=== PATIENT | male | born 1945 | race Caucasian/White ===

== ENCOUNTER → 2017-03-16 | Outpatient (CLI) | payer MEDICARE ==
--- NOTE | 2017-03-16 16:22 | RADIOLOGY REPORT (SQ) ---
EXAM DESCRIPTION: SMALL BOWEL SERIES COMPLETED DATE/TIME: 03/16/2017 9:42 am REASON FOR STUDY: IRON DEFICIENCY E61.1 IRON DEFICIENCY COMPARISON: None. FLUOROSCOPY TIME: 1 minutes 17 seconds 3 fluoroscopic spot images, 6 KUB imagessaved to PACS. LIMITATIONS: None. PROCEDURE: Initial molder foam rubber image of abdomen acquired, followed by administration of oral contrast. Se rial radiographic images acquired. Fluoroscopic images recorded of the terminal ileum and other joe cated areas. All images stored on PACS. FINDINGS: CLERK STENOGRAPHER KUB: Non-obstructive bowel pattern. No abnormal calcifications. Soft tissue planes normal. STOMACH: No significant reflux. Normal distention without abnormality. DUODENUM: Normal mucosal pattern with adequate distention. No displacement or obstruction. JEJUNUM: Normal mucosal pattern. No dilatation, segmentation, strictures or masses. ILEUM: Normal mucosal pattern. No dilatation, segmentation, strictures or masses. TERMINAL ILEUM AND ILEO-CECAL VALVE: Normal mucosal pattern without "cobble-stoning" or stricture. N ormal compression. PROXIMAL COLON: Incompletely imaged. No abnormality. OTHER: No other significant finding. IMPRESSION: NORMAL SMALL BOWEL EXAM. COMMENT: Quality ID [id number]: Final reports for procedures using fluoroscopy that document radiation exp osure indices, or exposure time and number of fluorographic images (if radiation exposure indices are not available) TECHNICAL DOCUMENTATION: JOB ID: [id number] [employer]- All Rights Reserved
== END ==
LOC: RAD 07:07
PROVIDERS: ATTEND Internal Medicine Gastroenterology
DX: K31.89 Other diseases of stomach and duodenum (principal)
CPT/HCPCS: 74250

== ENCOUNTER 2018-08-08 20:06 | Emergency (ER) | payer MEDICARE ==
[2018-08-08] MEDS ORDERED: ASPIRIN 81 MG TABLET, CHEWABLE PO ONE (21:03)
--- NOTE | 2018-08-08 21:07 | EKG REPORT ---
SEVERITY:- ABNORMAL ECG - SINUS RHYTHM PROBABLE LEFT ATRIAL ABNORMALITY INCOMPLETE RBBB AND LAFB LEFT VENTRICULAR HYPERTROPHY ANTERIOR Q WAVES, POSSIBLY DUE TO LVH : Confirmed by: Susie Rosales MD 08-Aug-2018 21:07:13
[2018-08-08 21:28] LABS: ABSOLUTE BASOPHILS # (AUTO) 0.1 10^3/uL (0.0-0.2); ABSOLUTE EOSINOPHILS # (AUTO) 0.1 10^3/uL (0.0-0.6); ABSOLUTE LYMPHOCYTES (AUTO) 0.6 10^3/uL (0.5-4.7); ABSOLUTE MONOCYTES (AUTO) 0.7 10^3/uL (0.1-1.4); ABSOLUTE NEUT (AUTO) 4.2 10^3/uL (1.7-8.2); BASOPHILS % (AUTO) 1.3 % (0-2); EOSINOPHILS % (AUTO) 1.6 % (0-6); HEMATOCRIT 40.9 % (37.9-51.0); LYMPHOCYTES % (AUTO) 11.2 % (13-45); MEAN CORPUSCULAR HEMOGLOBIN 29.8 pg (27.0-33.4); MEAN CORPUSCULAR HGB CONC 34.3 g/dL (32.0-36.0); MEAN CORPUSCULAR VOLUME 87 fl (80-97); MONOCYTES % (AUTO) 11.6 % (3-13); PLATELET COUNT 265 10^3/uL (150-450); RED BLOOD COUNT 4.71 10^6/uL (4.35-5.55); RED CELL DISTRIBUTION WIDTH 14.3 % (11.5-14.0); SEGMENTED NEUTROPHILS % (AUTO) 74.3 % (42-78); TOTAL CELLS COUNTED % (AUTO) 100 %; WHITE BLOOD COUNT 5.7 10^3/uL (4.0-10.5)
[2018-08-08] MEDS ORDERED: METOPROLOL TARTRATE PF/INJ 5 MG/5 ML SDV IV ONE (21:29)
[2018-08-08] MEDS ORDERED: NITROGLYCERIN 2% OINTMENT 1 GM PACKET TP ONE (21:29)
[2018-08-08 21:46] LABS: ALANINE AMINOTRANSFERASE 20 U/L (21-72); ALBUMIN 3.9 g/dL (3.5-5.0); ALKALINE PHOSPHATASE 116 U/L (38-126); ANION GAP 9 (5-19); ASPARTATE AMINO TRANSFERASE 27 U/L (17-59); BILIRUBIN,DIRECT 0.3 mg/dL (0.0-0.4); BILIRUBIN,TOTAL 0.4 mg/dL (0.2-1.3); BLOOD UREA NITROGEN 17 mg/dL (7-20); CALCIUM 9.4 mg/dL (8.4-10.2); CARBON DIOXIDE 33 mmol/L (22-30); CHLORIDE 99 mmol/L (98-107); CREATINE KINASE 71 U/L (55-170); GLUCOSE 119 mg/dL (75-110); POTASSIUM 4.3 mmol/L (3.6-5.0); SODIUM 140.6 mmol/L (137-145); TOTAL PROTEIN 7.2 g/dL (6.3-8.2)
--- NOTE | 2018-08-08 21:50 | RADIOLOGY REPORT (SQ) ---
EXAM DESCRIPTION: XR CHEST 1 VIEW COMPLETED DATE/TME: 08/08/2018 21:03 CLINICAL HISTORY: 73 years, Male, cp Findings: Heart is not enlarged. Aorta is uncoiled. No consolidations or pleural effusions. No pulmonary edema or pneumothorax. IMPRESSION: No acute disease.
[2018-08-08 21:54] LABS: CREATINE KINASE MB 1.24 ng/mL (<4.55); TROPONIN I 0.022 ng/mL
[2018-08-08] MEDS ORDERED: NITROGLYCERIN 0.4 MG/TAB 25 TAB/BOTTLE SL PRN (22:00)
[2018-08-08] MEDS ORDERED: MORPHINE SULFATE 10 MG/ML INJ IV ONE (22:01)
[2018-08-08] MEDS ORDERED: ONDANSETRON HCL INJ/PF 4 MG/2 ML SDV IV ONE (22:01)
--- NOTE | 2018-08-08 22:02 | ER Document Report ---
ED Cardiac - General Chief Complaint: Chest Pain Stated Complaint: CHEST PAIN Time Seen by Provider: 08/08/18 21:29 Mode of Arrival: Ambulatory Information source: Patient Notes: This is a 73-year-old man with a history of hyper tension, throat cancer ( status post radiation therapy, chemotherapy) who presents to the emergency room with chest pain starting when he was outside with his dog. Patient does report nausea and vomiting after the onset of chest pain. He describes the pain is retrosternal and sharp in nature. He denies shortness of breath. The patient denied any chest pain going to the back at first, but then started saying it was going to his back afterwards. Patient's blood pressure was noted to be 199/ 117 in triage. Past medical history: Hypertension throat cancer status post radiation therapy and chemotherapy. Past surgical history: Carotid endarterectomy ([facility]) PEG tube (during chemotherapy and radiation therapy: Has since been reversed). Medicines: Enalapril 2.5 mg twice daily Allergies: None TRAVEL OUTSIDE OF THE [place] IN LAST 30 DAYS: No - HPI Patient complains to provider of: Chest pain Use of: denies: Alcohol, Amphetamines, Bath salts, Caffeine, Cocaine, Decongestants, Other Chest pain location: Substernal Quality of pain: Sharp Chest pain radiation location: Back Severity now: Mild Severity at worst: Severe Pain level currently: 1 Chest pain precipitating factors: At Rest Cardiac risk factors: Hypertension Positive cardiac history: No Associated symptoms: denies: Abdominal pain, Cool extremities, Fever/chills, Palpitations Exacerbated by: Denies Relieved by: Nothing Similar symptoms previously: No Recently seen / treated by doctor: No - Related Data Allergies/Adverse Reactions: No Known Allergies Allergy (Verified 12/12/13 14:12) Past Medical History - General Information source: Patient - Social History Smoking Status: Former Smoker Cigarette use (# per day): No Chew tobacco use (# tins/day): No Smoking Education Provided: No Frequency of alcohol use: None Drug Abuse: None Lives with: Spouse/Significant other Family History: None Patient has suicidal ideation: No Patient has homicidal ideation: No - Past Medical History Cardiac Medical History: Reports: Hx Hypertension Denies: Hx Coronary Artery Disease, Hx Heart Attack Pulmonary Medical History: Denies: Hx Asthma, Hx Bronchitis, Hx COPD, Hx Pneumonia Neurological Medical History: Denies: Hx Cerebrovascular Accident, Hx Seizures Renal/ Medical History: Denies: Hx Peritoneal Dialysis GI Medical History: Reports: Hx Hepatitis - hep c Musculoskeletal Medical History: Denies Hx Arthritis Infectious Medical History: Reports: Hx Hepatitis - hep c Past Surgical History: Reports: Hx Carotid Endarterectomy, Other - PEG tube with reversal - Immunizations Hx Diphtheria, Pertussis, Tetanus Vaccination: Yes Hx Pneumococcal Vaccination: 12/12/13 Review of Systems - Review of Systems Constitutional: denies: Chills, Fever EENT: No symptoms reported Cardiovascular: See HPI Respiratory: No symptoms reported Gastrointestinal: No symptoms reported Genitourinary: No symptoms reported Male Genitourinary: No symptoms reported Musculoskeletal: No symptoms reported Skin: No symptoms reported Hematologic/Lymphatic: No symptoms reported Neurological/Psychological: No symptoms reported Physical Exam - Vital signs Vitals: Temp Pulse Resp BP Pulse Ox 97.2 F 81 18 199/117 H 97 08/08/18 20:08 08/08/18 20:08 08/08/18 20:08 08/08/18 20:08 08/08/18 20:08 Notes: Physical exam: GENERAL: Patient is alert and oriented x3. Blood pressure is 185/116 HEAD: Atraumatic, normocephalic. EYES: Pupils equal round and reactive to light, extraocular movements intact, sclera anicteric, conjunctiva are normal. ENT: TMs normal, nares patent, oropharynx clear without exudates. Moist mucous membranes. NECK: Normal range of motion, supple without obvious mass or JVD. LUNGS: Breath sounds clear to auscultation bilaterally and equal. No wheezes rales or rhonchi. HEART: Regular rate and rhythm without murmurs, rubs or gallops. ABDOMEN: Soft, normoactive bowel sounds. No tenderness to palpation. No guarding, no rebound. No masses appreciated. EXTREMITIES: Normal range of motion, no pitting or edema. No clubbing or cyanosis. Strong pulses bilaterally upper and lower extremities. NEUROLOGICAL: Cranial nerves II through XII grossly intact. Normal speech, moving all extremities. PSYCH: Normal mood, normal affect. SKIN: Warm, Dry, normal turgor, no rashes or lesions noted. Course - Re-evaluation Re-evalutation: 08/08/18 23:50 Note: Patient was started with normal chest pain protocol: Patient was given sublingual nitroglycerin placed on sublingual nitroglycerin. He also received IV morphine and IV metoprolol.. He did temporarily drop his blood pressure which responded quickly after taking off the Nitropaste. In general, he states his pain is much improved. I did discuss the results of the CAT scan with Dr. Leach which shows a type B thoracic aortic dissection. Additional findings include pulmonary vein thromboses of bilateral inferior pulmonary veins. There is no evidence of pulmonary artery emboli. Patient was placed on IV nicardipine drip and his blood pressure is currently 142/72 and we will titrate his blood pressure down to a systolic blood pressure between 100 and 120. [facility] has been contacted for transfer. 08/08/18 23:53 08/09/18 00:09 Current blood pressure is 123/83 with a pulse of 67. 08/09/18 00:[address] Dhaliwal at [facility]: He is willing to accept patient to the CVICU. Patient's repeat EKG shows normal sinus rhythm with a ventricular rate of 74, there does appear to be inverted T's which are new compared to the previous EKG. His first troponin is negative. His pain is actually much improved ( almost gone) and his blood pressure at this point is 110/74 with a pulse rate of 65. Will continue to follow. 08/09/18 00:44 - Vital Signs Vital signs: Temp Pulse Resp BP Pulse Ox 97.2 F 81 16 125/77 97 08/08/18 20:08 08/08/18 20:08 08/09/18 00:05 08/09/18 00:01 08/09/18 00:05 - Laboratory Result Diagrams: 08/08/18 21:14 08/08/18 21:14 Laboratory results interpreted by me: 08/08/18 08/08/18 21:14 21:14 RDW 14.3 H Lymphocytes % 11.2 L Carbon Dioxide 33 H Glucose 119 H ALT 20 L - Diagnostic Test Radiology reviewed: Image reviewed, Reports reviewed - CT of the chest shows a thoracic aortic dissection starting after the brachial cephalic artery. It also shows pulmonary vein thromboses of bilateral inferior pulmonary veins. - EKG Interpretation by Me Rate: Normal Rhythm: NSR - EKG shows sinus rhythm with a ventricular rate of 82, left axis deviation, signs of LVH, no acute ST-T wave changes Critical Care Note - Critical Care Note Total time excluding time spent on procedures (mins): 90 Discharge - Discharge Clinical Impression: Thoracic aortic dissection, Pulmonary vein thrombosis Condition: Serious Disposition: [facility] Referrals: SUSU FRYE FNP [Primary Care Provider] - Follow up as needed
[2018-08-08] MEDS ORDERED: NORMAL SALINE 1000 ML 1,000 ML IV ONE (22:32)
[2018-08-08] MEDS ORDERED: NICARDIPINE HCL RTU, ISO-OS 20 MG/200 ML RTUINJ IV PRN (23:30)
--- NOTE | 2018-08-08 23:33 | RADIOLOGY REPORT (SQ) ---
EXAM DESCRIPTION: CT CHEST ANGIOGRAPHY WITHOUT THEN WITH IV CONTRAST COMPLETED DATE/TME: 08/08/2018 22:36 CLINICAL HISTORY: 73 years Male, cp Comparison: None. Technique: IV contrast. Coronal and sagittal reformat. 3d reconstruction. This exam was performed according to our departmental dose-optimization program, which includes automated exposure control, adjustment of the mA and/or kV according to patient size and/or use of iterative reconstruction technique.[facility]: Dose Right [facility]: CareDose [facility]: Dose Right [facility]: Teradose 4D [facility]: Smart LIQVID LIMITATIONS: None Findings: Type B aortic dissection with up to 50% diameter stenosis of the descending thoracic aorta. Intimal flap extends from the aortic arch to the lower chest. Nonocclusive filling defects of bilateral inferior pulmonary veins suggestive of pulmonary vein thrombosis. No pulmonary arterial embolus. No right ventricular strain. Emphysematous hyperinflation. Coronary arterial calcification. Atherosclerosis. Degenerative disc disease. Inferior neck, axillae, mediastinum, lungs, airway, lymphatics, heart, upper abdomen, and musculoskeleton appear otherwise unremarkable. Impression: 1. Type B thoracic aortic dissection. 2. 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 Differential etiologies include complications of malignancy, post lung surgery, atrial fibrillation, or idiopathic. 3. No pulmonary arterial embolus.
[2018-08-09 01:26] VITALS: BP 111/72
--- NOTE | 2018-08-09 08:16 | EKG REPORT ---
SEVERITY:- NORMAL ECG - SINUS RHYTHM : Confirmed by: Susie Rosales MD 09-Aug-2018 08:15:24
--- NOTE | 2018-08-09 08:16 | EKG REPORT ---
SEVERITY:- ABNORMAL ECG - SINUS RHYTHM LEFT ANTERIOR FASCICULAR BLOCK : Confirmed by: Susie Rosales MD 09-Aug-2018 08:15:18
== END 2018-08-09 01:38 | disposition short-term general hospital (02) ==
LOC: ER 20:06
DX: I71.01 Dissection of thoracic aorta (principal); I26.99 Other pulmonary embolism without acute cor pulmonale; R11.2 Nausea with vomiting, unspecified; I10 Essential (primary) hypertension; Z85.819 Personal history of malignant neoplasm of unspecified site of lip, oral cavity, and pharynx; Z92.21 Personal history of antineoplastic chemotherapy; Z92.3 Personal history of irradiation; Z79.899 Other long term (current) drug therapy; Z87.891 Personal history of nicotine dependence
CPT/HCPCS: 93005 ×2; 99291; 99292; 96361; 96375; 96365; 96366; 36415; 82553; 82550; 85025; 80053; 84484; 71045; 71275; 93010 ×2; A9270 ×2; J3490 ×2; J2270; J2405; J7030

== ENCOUNTER 2018-09-06 08:05 | Emergency (ER) | payer MEDICARE ==
--- NOTE | 2018-09-06 08:24 | ER Document Report ---
ED General - General Stated Complaint: POSSIBLE STROKE Time Seen by Provider: 09/06/18 08:09 Notes: Patient is a 73-year-old male with history of peripheral vascular disease, and carotid artery stenosis with stenting that presents to the emergency department for chief complaint of left-sided weakness, confusion. Patient history provided by EMS and the patient's . Paramedics report that the patient was last normal at 715 this morning, and when they arrived the patient had left-sided hemiparesis, and was dysarthric, and appeared confused did not remember the events leading up to their arrival. However in route his symptoms had completely resolved without intervention. Patient does not recall having the symptoms, at this time he is completely alert and oriented, and has no complaints, denies having any weakness numbness or tingling. His speech is mj r. He does have a history of bilateral carotid artery stenosis, with bilateral stenting, he also has a history recent diagnosis at the end of July of descending thoracic aortic aneurysm with dissection, which is currently being monitored. Past Medical History: Hypertension, peripheral vascular disease, history of throat cancer status post radiation and chemo Past Surgical History: Carotid artery stenting and endarterectomy Social History: Admits to smoking cigarettes up until 2 years ago, was a former heavy smoker, denies current alcohol or drug use Family History: Reviewed and noncontributory for presenting illness Allergies: Reviewed, see documented allergy list. REVIEW OF SYSTEMS: Other than noted above, the 12 point review of systems was reviewed with the patient and were negative, all pertinent findings are included in the HPI. PHYSICAL EXAMINATION: Vital signs reviewed, nursing noted reviewed. GENERAL: Elderly male, no acute distress HEAD: Atraumatic, normocephalic. EYES: Eyes appear normal, extraocular movements intact, sclera anicteric, conjunctiva are normal. ENT: nares patent, oropharynx clear without exudates. Moist mucous membranes. NECK: Normal range of motion, supple without lymphadenopathy LUNGS: Breath sounds clear to auscultation bilaterally and equal. No wheezes rales or rhonchi. HEART: Regular rate and rhythm without murmurs ABDOMEN: Soft, nontender, normoactive bowel sounds. No rebound, guarding, or rigidity. No masses appreciated. EXTREMITIES: Nontender, good range of motion, no pitting or edema. NEUROLOGICAL: No focal neurological deficits. Moves all extremities spontaneously Motor and sensory grossly intact on exam. NIH stroke scale score: 0 PSYCH: Normal mood, normal affect. SKIN: Warm, Dry, normal turgor, no rashes or lesions noted on exposed skin TRAVEL OUTSIDE OF THE [place] IN LAST 30 DAYS: No - Related Data Allergies/Adverse Reactions: No Known Allergies Allergy (Verified 12/12/13 14:12) Past Medical History - Social History Family History: None - Past Medical History Cardiac Medical History: Reports: Hx Hypertension Denies: Hx Coronary Artery Disease, Hx Heart Attack Pulmonary Medical History: Denies: Hx Asthma, Hx Bronchitis, Hx COPD, Hx Pneumonia Neurological Medical History: Denies: Hx Cerebrovascular Accident, Hx Seizures Renal/ Medical History: Denies: Hx Peritoneal Dialysis GI Medical History: Reports: Hx Hepatitis - hep c Musculoskeletal Medical History: Denies Hx Arthritis Infectious Medical History: Reports: Hx Hepatitis - hep c Past Surgical History: Reports: Hx Carotid Endarterectomy, Other - PEG tube with reversal - Immunizations Hx Diphtheria, Pertussis, Tetanus Vaccination: Yes Hx Pneumococcal Vaccination: 12/12/13 Physical Exam - Vital signs Vitals: Pulse Resp BP Pulse Ox 54 L 16 153/90 H 93 09/06/18 08:06 09/06/18 08:06 09/06/18 08:06 09/06/18 08:06 Course - Re-evaluation Re-evalutation: Patient seen and examined vital signs reviewed. Laboratory data and imaging were ordered as appropriate for the patient's presenting symptoms and complaint, with consideration of any critical or life threatening conditions that may be associated with their obtained history and exam as noted above. On arrival, the patient's NIH stroke score was 0, see detailed note on NIH stroke scale score. Results were reviewed when available and demonstrated leukocytosis, CT of the head was negative for acute hemorrhage, CT of the head and neck demonstrated complete occlusion of the right carotid artery, in-stent occlusion, left carotid artery stent was patent, there is noted to be hypoperfusion of the right frontal lobe,, which may be explained the patient's symptoms, if he had transient hypotension, or vagal, however at this time his symptoms are completely resolved, his blood pressure is 160/90, he did not take his home blood pressure medications today. The patient was re-evaluated and was stable, no new neurological findings on my repeat evaluation Evaluation was most consistent with TIA, however patient has carotid artery stenosis, and hypoperfusion of the right frontal lobe, which would explain the symptoms he presented with, and why EMS was called. As he had left-sided motor symptoms. His situation is rather complicated however given that he has a descending thoracic aortic aneurysm with dissection, and completely occluded right carotid artery, therefore feel the patient should be transferred to [facility], where he has seen his vascular surgeon before, and it where he was seen on his prior visit for the initial diagnosis of his aneurysm. Results were discussed with the patient at this point after careful consideration I feel that that patient should be transferred to [facility] due to his complicated past medical history and current aortic dissection. Case was discussed with both the neuro interventionalists and Dr. Dixon the hospitalist, who graciously accepted the patient with her service, no further recommendations at this time. This was discussed with the patient that it is in the best interest for their care to be transferred, the risks and benefits of transfer were discussed, including but not limited to clinical deterioration during transport, respiratory distress, and potential for traumatic injuries. Patient agreed with this plan of care. *Note is created using voice recognition software and may contain spelling, syntax or grammatical errors. Laboratory 09/06/18 09/06/18 09/06/18 08:30 08:30 08:30 WBC 15.0 H RBC 4.54 Hgb 13.0 L Hct 39.6 MCV 87 MCH 28.7 MCHC 32.9 RDW 14.1 H Plt Count 375 Total Counted 100 Seg Neutrophils % Not Reportable Seg Neuts % (Manual) 85 H Band Neutrophils % 7 H Lymphocytes % Not Reportable Lymphocytes % (Manual) 4 L Monocytes % Not Reportable Monocytes % (Manual) 4 Eosinophils % Not Reportable Eosinophils % (Manual) 0 Basophils % Not Reportable Basophils % (Manual) 0 Absolute Neutrophils Not Reportable Abs Neuts (Manual) 13.8 H Absolute Lymphocytes Not Reportable Abs Lymphs (Manual) 0.6 Absolute Monocytes Not Reportable Abs Monocytes (Manual) 0.6 Absolute Eosinophils Not Reportable Absolute Eos (Manual) 0.0 Absolute Basophils Not Reportable Abs Basophils (Manual) 0.0 Platelet Comment ADEQUATE Poikilocytosis SLIGHT Anisocytosis SLIGHT Ovalocytes SLIGHT PT INR APTT Sodium 134.7 L Potassium 4.7 Chloride 101 Carbon Dioxide 29 Anion Gap 5 BUN 20 Creatinine 1.05 Est GFR ( Amer) > 60 Est GFR (Non-Af Amer) > 60 Glucose 107 POC Glucose Calcium 8.8 Total Bilirubin 0.7 Direct Bilirubin 0.3 Neonat Total Bilirubin Not Reportable Neonat Direct Bilirubin Not Reportable Neonat Indirect Bili Not Reportable AST 21 ALT 12 L Alkaline Phosphatase 94 Creatine Kinase 27 L CK-MB (CK-2) 0.35 Troponin I < 0.012 Total Protein 5.7 L Albumin 2.9 L 09/06/18 09/06/18 09/06/18 08:31 08:45 08:46 WBC RBC Hgb Hct MCV MCH MCHC RDW Plt Count Total Counted Seg Neutrophils % Seg Neuts % (Manual) Band Neutrophils % Lymphocytes % Lymphocytes % (Manual) Monocytes % Monocytes % (Manual) Eosinophils % Eosinophils % (Manual) Basophils % Basophils % (Manual) Absolute Neutrophils Abs Neuts (Manual) Absolute Lymphocytes Abs Lymphs (Manual) Absolute Monocytes Abs Monocytes (Manual) Absolute Eosinophils Absolute Eos (Manual) Absolute Basophils Abs Basophils (Manual) Platelet Comment Poikilocytosis Anisocytosis Ovalocytes PT 14.4 Cancelled INR 1.07 Cancelled APTT 25.7 Cancelled Sodium Potassium Chloride Carbon Dioxide Anion Gap BUN Creatinine Est GFR ( Amer) Est GFR (Non-Af Amer) Glucose POC Glucose 101 Calcium Total Bilirubin Direct Bilirubin Neonat Total Bilirubin Neonat Direct Bilirubin Neonat Indirect Bili AST ALT Alkaline Phosphatase Creatine Kinase CK-MB (CK-2) Troponin I Total Protein Albumin Chest X-Ray 09/06/18 08:06 IMPRESSION: New heterogeneous opacity of the left lung base, concerning for infection or aspiration. Head CT 09/06/18 08:06 IMPRESSION: No acute intracranial pathology. No CT evidence of acute stroke or hemorrhage. EVIDENCE OF ACUTE STROKE: NO. Findings were discussed via telephone with Dr. Greene, 8:18 AM, 09/06/2018 Head CTA 09/06/18 08:10 IMPRESSION: 1. 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 This is of uncertain acuity. The right middle cerebral artery and distal branches are patent and perfused via the patent anterior and posterior communicating arteries, however there is a subjective appearance of contrast hypoperfusion of the anterior right frontal lobe, possibly due to inadequate perfusion pressure through these collateral vessels. Correlate for referable neurologic symptoms. 2. The left internal carotid artery stent and distal vessel are patent. 3. Normal posterior circulation. 4. Redemonstrated, partially imaged thoracic aortic aneurysm and descending thoracic aortic dissection. 5. Emphysema of the included bilateral lung apices and patchy airspace disease of the partially imaged left upper lobe, findings in keeping with chest radiograph and concerning for infection or aspiration. Neck CTA 09/06/18 08:10 IMPRESSION: 1. 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 This is of uncertain acuity. The right middle cerebral artery and dist al branches are patent and perfused via the patent anterior and posterior communicating arteries, however there is a subjective appearance of contrast hypoperfusion of the anterior right frontal lobe, possibly due to inadequate perfusion pressure through these collateral vessels. Correlate for referable neurologic symptoms. 2. The left internal carotid artery stent and distal vessel are patent. 3. Normal posterior circulation. 4. Redemonstrated, partially imaged thoracic aortic aneurysm and descending thoracic aortic dissection. 5. Emphysema of the included bilateral lung apices and patchy airspace disease of the partially imaged left upper lobe, findings in keeping with chest radiograph and concerning for infection or aspiration. - Vital Signs Vital signs: Temp Pulse Resp BP Pulse Ox 54 L 16 153/90 H 95 09/06/18 08:06 09/06/18 08:06 09/06/18 08:06 09/06/18 08:36 - Laboratory Result Diagrams: 09/06/18 08:30 09/06/18 08:30 Laboratory results interpreted by me: 09/06/18 09/06/18 08:30 08:30 WBC 15.0 H Hgb 13.0 L RDW 14.1 H Seg Neuts % (Manual) 85 H Band Neutrophils % 7 H Lymphocytes % (Manual) 4 L Abs Neuts (Manual) 13.8 H Sodium 134.7 L ALT 12 L Creatine Kinase 27 L Total Protein 5.7 L Albumin 2.9 L - EKG Interpretation by Me Additional EKG results interpreted by me: EKG demonstrates sinus bradycardia with a ventricular rate of 57 bpm, left axis deviation, normal intervals, no evidence of acute ischemia on this EKG, this is compared with prior EKG from 08/09/2018, where the T waves in the lateral leads appear to be flipped from depressed to upright. Discharge - Discharge Referrals: SUSU FRYE FNP [Primary Care Provider] - Follow up as needed ED NIH Stroke Scale - NIH Stroke Scale *: 1. NIH scale should be completed with appropriate accompanying assessment tools. *: 2. The NIH should reflect what the patient is capable of doing and should not be coached by the clinician. 1a. Level of Consciousness: 0=Alert;keenly responsive -: 1=Drowsy -: 2=Obtunded -: 3=Coma/unresponsive or reflex to noxious stimuli. 1a. Responses: 0 1b. Orientation Questions: a. What month is it? -: b. How old are you? -: 0=Answers both questions correctly. -: 1=Answers one question correctly or patient is intubated or has orotracheal trauma. -: 2=Answers neither question correctly. 1b. Responses: 0 1c. Response to commands: a. Open and close eyes? -: b. Retirement Specialist and release hand? -: Credit is given despite weakness. Demonstration of task is permitted. Substitute command if hands cannot be used. -: 0=Performs both tasks correctly -: 1=Performs one task correctly -: 2=Performs neither task correctly 1c. Responses: 0 2. Gaze: Establish eye contact and instruct patient to "Follow my finger" -: 0=Normal -: 1=Partial gaze palsy. Gaze is abnormal in one or both eyes, but where forced deviation or total gaze paresis is not present. -: 2=Forced deviation or total gaze paresis. 2. Responses: 0 3. Visual Calix: Sees fingers in all four quadrants. -: 0=No visual loss. -: 1=Partial hemianopsia. -: 2=Complete hemianopsia. -: 3=Bilateral hemianopsia (including Cortical blindness) 3. Responses: 0 4. Facial Movement: Instruct patient to: -: a. Show me your teeth -: b. Raise your eyebrows -: c. Close your eyes -: d. Smile -: 0=Normal symmetrical movement -: 1=Minor paralysis (flattened nasolabial fold, asymmetry on smiling). -: 2=Partial paralysis (total or near total paralysis of lower face). -: 3=Complete paralysis of upper and lower face 4. Responses: 0 5. Motor functions (left arm): Alternate sides and extend each arm with palms down (90 degrees if sitting or 45 degrees for supine). -: 0=No drift;limb holds for full 10 seconds. -: 1=Drift; limb holds but drifts down before full 10 seconds, but does not hit bed. -: 2=Some effort against gravity; limb cannot get to or maintain position. -: 3=No effort against gravity; limb falls. -: 4=No movement. -: UN=Amputation, joint fusion, explain in comments. 5. Responses (left arm): 0 5. Motor Functions (right arm): Alternate sides and extend each arm with palms down (90 degrees if sitting or 45 degrees for supine). -: 0=No drift;limb holds for full 10 seconds. -: 1=Drift; limb holds but drifts down before full 10 seconds, but does not hit bed. -: 2=Some effort against gravity; limb cannot get to or maintain position. -: 3=No effort against gravity; limb falls. -: 4=No movement. -: UN=Amputation, joint fusion, explain in comments. 5. Responses (right arm): 0 6. Motor Functions (left leg): With patient lying supine, alternate sides and extend each leg (30 degrees always while supine). -: 0=No drift, leg holds position for full 5 seconds -: 1=Drift; leg falls before full 5 seconds but does not hit bed. -: 2=Some effort against gravity, leg falls to bed but some effort against gravity. -: 3=No effort against gravity, leg falls to bed immediately. -: 4=No movement. -: UN=Amputation, joint fusion; explain in comments. 6. Responses (left leg): 0 6. Motor Functions (right leg): With patient lying supine, alternate sides and extend each leg (30 degrees always while supine). -: 0=No drift, leg holds position for full 5 seconds -: 1=Drift; leg falls before full 5 seconds but does not hit bed. -: 2=Some effort against gravity, leg falls to bed but some effort against gravity. -: 3=No effort against gravity, leg falls to bed immediately. -: 4=No movement. -: UN=Amputation, joint fusion; explain in comments. 6. Responses (right leg): 0 7. Limb Ataxia: With eyes open instruct patient to: -: a. "Touch your finger to your nose". -: b. "Touch your heel to your alfaro" -: 0=Absent -: 1=Present in one limb. -: 2=Present in two limbs. -: UN=Amputation or joint fusion; explain in comments. 7. Responses: 0 8. Sensory: Test sensation using pinprick or noxious stimuli. Test as many body parts as possible. -: 0=Normal;no sensory loss -: 1=Mile to moderate sensory loss (patient feels pin prick but is less sharp on affected side). -: 2=Severe or total sensory loss. 8. Responses: 0 9. Best Language: Instruct patient to: -: a. "Describe what you see in this picture." -: b. "Name the items in this picture." -: c. "Read these sentences." -: 0=No aphasia, normal -: 1=Mild to moderate aphasia. -: 2=Severe aphasia -: 3=Mute, global aphasia, no usable speech or auditory comprehension. 9. Responses: 0 10. Articulation, Dysarthia: Instruct patient to: -: "Read these words" or "Repeat these words" -: 0=Normal -: 1=Mild to moderate; patient may slur some words but can be understood without difficulty. -: 2=Severe; patients speech so slurred as to be unintelligible in the absence of dysphasia. -: UN=Intubated or other physical barrier, explain in comments. 10. Responses: 0 11. Extinction or inattention: 0=No abnormality -: 1= Visual, tactile, auditory, spatial, or personal inattention or extinction to bilateral simulation in one or the sensory modalities. -: 2=Profound jn-inattention or jn-inattention to more than one modality; does not recognize own hand. 11. Responses: 0 Notes: Patient seen and examined upon arrival by EMS, NIH stroke scale score was completed, and the score was 0. Patient was reportedly having symptoms of left- sided deficits, and aphasia by EMS, but these have since resolved upon my examination, given rapidly resolving symptoms, and NIH stroke scale score of 0, the risks of TPA dramatically outweigh the benefits, patient also has a relative contraindication, of a type B thoracic aortic dissection, that is currently being monitored, has not been surgically repaired or grafted.
--- NOTE | 2018-09-06 08:25 | RADIOLOGY REPORT (SQ) ---
EXAM DESCRIPTION: CT HEAD WITHOUT COMPLETED DATE/TIME: 09/06/2018 8:15 am REASON FOR STUDY: stroke alert COMPARISON: None. TECHNIQUE: Axial images acquired through the brain without intravenous contrast. Images reviewed wi th bone, brain and subdural windows. Additional sagittal and coronal reconstructions were generated. Images stored on PACS. All CT scanners at this facility use dose modulation, iterative reconstruction, and/or weight based d osing when appropriate to reduce radiation dose to as low as reasonably achievable (ALARA). [facility]: Dose Right [facility]: CareDose [facility]: Dose Right [facility]: Teradose 4D [facility]: Smart [employer] RADIATION DOSE: CT Rad equipment meets quality standard of care and radiation dose reduction techniq ues were employed. CTDIvol: 53.2 mGy. DLP: 991 mGy-cm. mGy. LIMITATIONS: None. FINDINGS: VENTRICLES: Normal size and contour. CEREBRUM: No masses. No hemorrhage. No midline shift. No evidence for acute infarction. Normal gra y/white matter differentiation. No areas of low density in the white matter. CEREBELLUM: No masses. No hemorrhage. No alteration of density. No evidence for acute infarction. EXTRAAXIAL SPACES: No fluid collections. No masses. ORBITS AND GLOBE: No intra- or extraconal masses. Normal contour of globe without masses. CALVARIUM: No fracture. PARANASAL SINUSES: No fluid or mucosal thickening. SOFT TISSUES: No mass or hematoma. OTHER: No other significant finding. IMPRESSION: No acute intracranial pathology. No CT evidence of acute stroke or hemorrhage. EVIDENCE OF ACUTE STROKE: NO. Findings were discussed via telephone with Dr. Greene, 8:18 AM, 09/06/2018 COMMENT: Quality ID # [id number]: Final reports with documentation of one or more dose reduction techniques (e.g., Automated exposure control, adjustment of the mA and/or kV according to patient size, use of iterative reconstruction technique) TECHNICAL DOCUMENTATION: JOB ID: [id number] [employer]- All Rights Reserved Reading location - IP/workstation name: [email or web address]
--- NOTE | 2018-09-06 08:39 | RADIOLOGY REPORT (SQ) ---
EXAM DESCRIPTION: CHEST SINGLE VIEW COMPLETED DATE/TIME: 09/06/2018 8:27 am REASON FOR STUDY: stroke alert COMPARISON: 08/08/2018 EXAM PARAMETERS: NUMBER OF VIEWS: One view. TECHNIQUE: Single frontal radiographic view of the chest acquired. RADIATION DOSE: NA LIMITATIONS: None. FINDINGS: LUNGS AND PLEURA: There is new heterogeneous opacity of the left lung base. MEDIASTINUM AND HILAR STRUCTURES: No masses. Contour normal. HEART AND VASCULAR STRUCTURES: Heart normal in size. Normal vasculature. BONES: No acute findings. HARDWARE: None in the chest. OTHER: No other significant finding. IMPRESSION: New heterogeneous opacity of the left lung base, concerning for infection or aspiration. TECHNICAL DOCUMENTATION: JOB ID: [id number] [employer]- All Rights Reserved Reading location - IP/workstation name: [email or web address]
--- NOTE | 2018-09-06 08:51 | RADIOLOGY REPORT (SQ) ---
EXAM DESCRIPTION: CTA HEAD; CTA NECK COMPLETED DATE/TIME: 09/06/2018 8:27 am REASON FOR STUDY: left sided weakness, hx aortic aneurysm COMPARISON: CT chest, 08/08/2018 TECHNIQUE: Post IV contrast scanning, thin section axial imaging through the neck and brain to evalu ate the arterial structures. Source and MIP images are saved and reviewed on PACS. Advanced 3D imaging as volume-rendering, MIPs, SSD performed? yes All CT scanners at this facility use dose modulation, iterative reconstruction, and/or weight based d osing when appropriate to reduce radiation dose to as low as reasonably achievable (ALARA). [facility]: Dose Right [facility]: CareDose [facility]: Dose Right [facility]: Teradose 4D [facility]: [employer] CONTRAST TYPE AND DOSE: contrast/concentration: Isovue 350.00 mg/ml; Total Contrast Delivered: 70.0 ml; Total Saline Delivered: 75.0 ml RENAL FUNCTION: GFR > 60. RADIATION DOSE: 406 mGy cm LIMITATIONS: None. FINDINGS: INCLUDED ARCH: Redemonstrated aneurysm and descending dissection of the partially include d thoracic aorta. The branch vessel origins are patent. 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 The left internal carotid artery stent and distal vessel are patent. The bilateral vertebral arteries are patent to the basilar confluence. [place]: The anterior, middle, posterior cerebral arteries are all patent. No evidence of a neurysm or focal stenosis. The right middle cerebral artery and branch vessels appear patent althoug h there is a subjective appearance of hypoperfusion of the anterior right frontal lobe, possibly due to inadequate perfusion fracture through the collateralized anterior communicating and posterior comm unicating arteries. POSTERIOR CIRCULATION: The distal vertebral arteries are patent as is the basilar artery. No aneurysm . BRAIN: No gross enhancing lesions as visualized. The superior cerebral hemispheres are not included in the field of view. BONES: Intact as visualized. SINUSES: No fluid or mucosal thickening. OTHER: Emphysema and patchy airspace disease of the partially imaged left lower lobe. IMPRESSION: 1. 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 This is of uncertain acuity. The right middle cerebral artery and distal branches are patent and perfused via the patent anterior and posterior communicating arter ies, however there is a subjective appearance of contrast hypoperfusion of the anterior right frontal lobe, possibly due to inadequate perfusion pressure through these collateral vessels. Correlate for referable neurologic symptoms. 2. The left internal carotid artery stent and distal vessel are patent. 3. Normal posterior circulation. 4. Redemonstrated, partially imaged thoracic aortic aneurysm and descending thoracic aortic dissecti on. 5. Emphysema of the included bilateral lung apices and patchy airspace disease of the partially imag ed left upper lobe, findings in keeping with chest radiograph and concerning for infection or aspirat ion. TECHNICAL DOCUMENTATION: JOB ID: [id number] Quality ID # 436: Final reports with documentation of one or more dose reduction techniques (e.g., Au tomated exposure control, adjustment of the mA and/or kV according to patient size, use of iterative reconstruction technique) 2010 [employer]- All Rights Reserved Reading location - IP/workstation name: [email or web address]
--- NOTE | 2018-09-06 08:51 | RADIOLOGY REPORT (SQ) ---
EXAM DESCRIPTION: CTA HEAD; CTA NECK COMPLETED DATE/TIME: 09/06/2018 8:27 am REASON FOR STUDY: left sided weakness, hx aortic aneurysm COMPARISON: CT chest, 08/08/2018 TECHNIQUE: Post IV contrast scanning, thin section axial imaging through the neck and brain to evalu ate the arterial structures. Source and MIP images are saved and reviewed on PACS. Advanced 3D imaging as volume-rendering, MIPs, SSD performed? yes All CT scanners at this facility use dose modulation, iterative reconstruction, and/or weight based d osing when appropriate to reduce radiation dose to as low as reasonably achievable (ALARA). [facility]: Dose Right [facility]: CareDose [facility]: Dose Right [facility]: Teradose 4D [facility]: [employer] CONTRAST TYPE AND DOSE: contrast/concentration: Isovue 350.00 mg/ml; Total Contrast Delivered: 70.0 ml; Total Saline Delivered: 75.0 ml RENAL FUNCTION: GFR > 60. RADIATION DOSE: 406 mGy cm LIMITATIONS: None. FINDINGS: INCLUDED ARCH: Redemonstrated aneurysm and descending dissection of the partially include d thoracic aorta. The branch vessel origins are patent. 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 The left internal carotid artery stent and distal vessel are patent. The bilateral vertebral arteries are patent to the basilar confluence. [place]: The anterior, middle, posterior cerebral arteries are all patent. No evidence of a neurysm or focal stenosis. The right middle cerebral artery and branch vessels appear patent althoug h there is a subjective appearance of hypoperfusion of the anterior right frontal lobe, possibly due to inadequate perfusion fracture through the collateralized anterior communicating and posterior comm unicating arteries. POSTERIOR CIRCULATION: The distal vertebral arteries are patent as is the basilar artery. No aneurysm . BRAIN: No gross enhancing lesions as visualized. The superior cerebral hemispheres are not included in the field of view. BONES: Intact as visualized. SINUSES: No fluid or mucosal thickening. OTHER: Emphysema and patchy airspace disease of the partially imaged left lower lobe. IMPRESSION: 1. 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 This is of uncertain acuity. The right middle cerebral artery and distal branches are patent and perfused via the patent anterior and posterior communicating arter ies, however there is a subjective appearance of contrast hypoperfusion of the anterior right frontal lobe, possibly due to inadequate perfusion pressure through these collateral vessels. Correlate for referable neurologic symptoms. 2. The left internal carotid artery stent and distal vessel are patent. 3. Normal posterior circulation. 4. Redemonstrated, partially imaged thoracic aortic aneurysm and descending thoracic aortic dissecti on. 5. Emphysema of the included bilateral lung apices and patchy airspace disease of the partially imag ed left upper lobe, findings in keeping with chest radiograph and concerning for infection or aspirat ion. TECHNICAL DOCUMENTATION: JOB ID: [id number] Quality ID # 436: Final reports with documentation of one or more dose reduction techniques (e.g., Au tomated exposure control, adjustment of the mA and/or kV according to patient size, use of iterative reconstruction technique) 2010 [employer]- All Rights Reserved Reading location - IP/workstation name: [email or web address]
[2018-09-06 08:55] LABS: HEMATOCRIT 39.6 % (37.9-51.0); MEAN CORPUSCULAR HEMOGLOBIN 28.7 pg (27.0-33.4); MEAN CORPUSCULAR HGB CONC 32.9 g/dL (32.0-36.0); MEAN CORPUSCULAR VOLUME 87 fl (80-97); PLATELET COUNT 375 10^3/uL (150-450); RED BLOOD COUNT 4.54 10^6/uL (4.35-5.55); RED CELL DISTRIBUTION WIDTH 14.1 % (11.5-14.0)
[2018-09-06 09:08] LABS: ALANINE AMINOTRANSFERASE 12 U/L (21-72); ALBUMIN 2.9 g/dL (3.5-5.0); ALKALINE PHOSPHATASE 94 U/L (38-126); ANION GAP 5 (5-19); ASPARTATE AMINO TRANSFERASE 21 U/L (17-59); BILIRUBIN,DIRECT 0.3 mg/dL (0.0-0.4); BILIRUBIN,TOTAL 0.7 mg/dL (0.2-1.3); BLOOD UREA NITROGEN 20 mg/dL (7-20); CALCIUM 8.8 mg/dL (8.4-10.2); CARBON DIOXIDE 29 mmol/L (22-30); CHLORIDE 101 mmol/L (98-107); CREATINE KINASE 27 U/L (55-170); GLUCOSE 107 mg/dL (75-110); POTASSIUM 4.7 mmol/L (3.6-5.0); SODIUM 134.7 mmol/L (137-145); TOTAL PROTEIN 5.7 g/dL (6.3-8.2)
[2018-09-06 09:11] LABS: INTERNATIONAL RATION (INR) 1.07
[2018-09-06 09:12] LABS: PARTIAL THROMBOPLASTIN TIME 25.7 SEC (23.5-35.8)
[2018-09-06 09:14] LABS: PROTHROMBIN TIME 14.4 SEC (11.4-15.4)
[2018-09-06 09:17] LABS: ABSOLUTE LYMPHOCYTES# (MANUAL) 0.6 10^3/uL (0.5-4.7); ABSOLUTE MONOCYTES # (MANUAL) 0.6 10^3/uL (0.1-1.4); ABSOLUTE NEUTROPHILS# (MANUAL) 13.8 10^3/uL (1.7-8.2); BAND NEUTROPHILS % (MANUAL) 7 % (3-5); BASOPHILS % (MANUAL) 0 % (0-2); EOSINOPHILS % (MANUAL) 0 % (0-6); LYMPHOCYTES % (MANUAL) 4 % (13-45); MONOCYTES % (MANUAL) 4 % (3-13); SEGMENTED NEUTROPHILS % (MAN) 85 % (42-78); TOTAL CELLS COUNTED 100
[2018-09-06 09:18] LABS: ANISOCYTOSIS SLIGHT; OVALOCYTES SLIGHT; PLATELET COMMENT ADEQUATE; POIKILOCYTOSIS SLIGHT
[2018-09-06 09:26] LABS: CREATINE KINASE MB 0.35 ng/mL (<4.55)
[2018-09-06 09:27] LABS: TROPONIN I < 0.012 ng/mL
--- NOTE | 2018-09-06 12:50 | EKG REPORT ---
SEVERITY:- ABNORMAL ECG - SINUS RHYTHM IVCD, CONSIDER ATYPICAL RBBB AND LAFB PROBABLE ANTEROSEPTAL INFARCT, OLD : Confirmed by: Ludwig Coe MD 06-Sep-2018 12:50:21
[2018-09-06 13:27] VITALS: BP 137/83
== END 2018-09-06 13:35 | disposition short-term general hospital (02) ==
LOC: ER 08:05
DX: G45.9 Transient cerebral ischemic attack, unspecified (principal); I65.21 Occlusion and stenosis of right carotid artery; I71.01 Dissection of thoracic aorta; I10 Essential (primary) hypertension; D72.829 Elevated white blood cell count, unspecified; R00.1 Bradycardia, unspecified; Z79.899 Other long term (current) drug therapy; Z95.5 Presence of coronary angioplasty implant and graft; Z85.819 Personal history of malignant neoplasm of unspecified site of lip, oral cavity, and pharynx; Z92.21 Personal history of antineoplastic chemotherapy; Z92.3 Personal history of irradiation; Z87.891 Personal history of nicotine dependence
CPT/HCPCS: 36415; 70450; 70496; 70498; 71045; 80053; 82550; 82553; 82962; 84484; 85025; 85610; 85730; 93005; 93010; 99291

== ENCOUNTER 2018-09-22 14:44 | Emergency (ER) | payer MEDICARE ==
--- NOTE | 2018-09-22 15:13 | RADIOLOGY REPORT (SQ) ---
EXAM DESCRIPTION: CHEST SINGLE VIEW COMPLETED DATE/TIME: 09/22/2018 3:00 pm REASON FOR STUDY: Stroke Alert COMPARISON: 09/06/2018 EXAM PARAMETERS: NUMBER OF VIEWS: One view. TECHNIQUE: Single frontal radiographic view of the chest acquired. RADIATION DOSE: NA LIMITATIONS: None. FINDINGS: LUNGS AND PLEURA: No opacities, masses or pneumothorax. No pleural effusion. MEDIASTINUM AND HILAR STRUCTURES: No masses. Contour normal. HEART AND VASCULAR STRUCTURES: Heart normal in size. Normal vasculature. BONES: No acute findings. HARDWARE: None in the chest. OTHER: No other significant finding. IMPRESSION: NO ACUTE RADIOGRAPHIC FINDING IN THE CHEST. TECHNICAL DOCUMENTATION: JOB ID: [id number] [employer]- All Rights Reserved Reading location - IP/workstation name: [email or web address]
[2018-09-22 15:17] LABS: ABSOLUTE BASOPHILS # (AUTO) 0.1 10^3/uL (0.0-0.2); ABSOLUTE EOSINOPHILS # (AUTO) 0.4 10^3/uL (0.0-0.6); ABSOLUTE LYMPHOCYTES (AUTO) 0.8 10^3/uL (0.5-4.7); ABSOLUTE MONOCYTES (AUTO) 0.8 10^3/uL (0.1-1.4); ABSOLUTE NEUT (AUTO) 3.7 10^3/uL (1.7-8.2); BASOPHILS % (AUTO) 1.9 % (0-2); EOSINOPHILS % (AUTO) 6.5 % (0-6); HEMATOCRIT 40.5 % (37.9-51.0); HEMOGLOBIN 13.7 g/dL (13.5-17.0); INTERNATIONAL RATION (INR) 0.95; LYMPHOCYTES % (AUTO) 13.8 % (13-45); MEAN CORPUSCULAR HGB CONC 33.7 g/dL (32.0-36.0); MEAN CORPUSCULAR VOLUME 86 fl (80-97); MONOCYTES % (AUTO) 13.4 % (3-13); PLATELET COUNT 343 10^3/uL (150-450); PROTHROMBIN TIME 13.2 SEC (11.4-15.4); RED CELL DISTRIBUTION WIDTH 14.5 % (11.5-14.0); SEGMENTED NEUTROPHILS % (AUTO) 64.4 % (42-78); TOTAL CELLS COUNTED % (AUTO) 100 %; WHITE BLOOD COUNT 5.7 10^3/uL (4.0-10.5)
--- NOTE | 2018-09-22 15:17 | RADIOLOGY REPORT (SQ) ---
EXAM DESCRIPTION: CT HEAD WITHOUT COMPLETED DATE/TIME: 09/22/2018 3:04 pm REASON FOR STUDY: Stroke Alert COMPARISON: 09/06/2018 TECHNIQUE: Axial images acquired through the brain without intravenous contrast. Images reviewed wi th bone, brain and subdural windows. Additional sagittal and coronal reconstructions were generated. Images stored on PACS. All CT scanners at this facility use dose modulation, iterative reconstruction, and/or weight based d osing when appropriate to reduce radiation dose to as low as reasonably achievable (ALARA). [facility]: Dose Right [facility]: CareDose [facility]: Dose Right [facility]: Teradose 4D [facility]: [employer] RADIATION DOSE: mGy. LIMITATIONS: None. FINDINGS: VENTRICLES: Normal in size for patient age. CEREBRUM: No masses. No hemorrhage. No midline shift. No evidence for acute infarction. Normal gra y/white matter differentiation. No areas of low density in the white matter. CEREBELLUM: No masses. No hemorrhage. No alteration of density. No evidence for acute infarction. EXTRAAXIAL SPACES: Mildly prominent compatible with parenchymal volume loss. ORBITS AND GLOBE: No intra- or extraconal masses. Normal contour of globe without masses. CALVARIUM: No fracture. PARANASAL SINUSES: No fluid or mucosal thickening. SOFT TISSUES: No mass or hematoma. OTHER: No other significant finding. IMPRESSION: No evidence of acute intracranial abnormality. EVIDENCE OF ACUTE STROKE: NO. COMMENT: Pertinent positive or negative findings of the imaging study reported as a CRITICAL EXAM markel Cheek at15:10 on 09/22/2018. Category of Critical Exam: Negative code stroke. Quality ID # 436: Final reports with documentation of one or more dose reduction techniques (e.g., Au tomated exposure control, adjustment of the mA and/or kV according to patient size, use of iterative reconstruction technique) TECHNICAL DOCUMENTATION: JOB ID: [id number] [employer]- All Rights Reserved Reading location - IP/workstation name: [email or web address] BEDS AT THE [facility]
[2018-09-22 15:18] LABS: PARTIAL THROMBOPLASTIN TIME 29.2 SEC (23.5-35.8)
[2018-09-22 15:33] LABS: ALANINE AMINOTRANSFERASE 23 U/L (21-72); ALBUMIN 3.5 g/dL (3.5-5.0); ALKALINE PHOSPHATASE 112 U/L (38-126); ANION GAP 9 (5-19); ASPARTATE AMINO TRANSFERASE 27 U/L (17-59); BILIRUBIN,DIRECT 0.3 mg/dL (0.0-0.4); BILIRUBIN,TOTAL 0.5 mg/dL (0.2-1.3); BLOOD UREA NITROGEN 15 mg/dL (7-20); CALCIUM 9.3 mg/dL (8.4-10.2); CARBON DIOXIDE 28 mmol/L (22-30); CHLORIDE 98 mmol/L (98-107); CREATINE KINASE 26 U/L (55-170); GLUCOSE 132 mg/dL (75-110); POTASSIUM 4.5 mmol/L (3.6-5.0); SODIUM 135.3 mmol/L (137-145); TOTAL PROTEIN 6.8 g/dL (6.3-8.2)
--- NOTE | 2018-09-22 15:46 | ER Document Report ---
ED General - General Chief Complaint: Weakness Stated Complaint: WEAKNESS Time Seen by Provider: 09/22/18 14:58 Mode of Arrival: Ambulatory Information source: Patient Notes: 73-year-old male with peripheral vascular disease, hypertension, type B dissection, hepatitis C, remote history of throat cancer presents via EMS from [facility] after an episode of left-sided weakness and confusion. Patient was recently discharged from [facility] where patient's right carotid stent was found to be completely occluded. He states that he was discharged home on aspirin and Plavix and had been doing well until today when he went for physical therapy and was unable to walk. Upon my exam patient is asymptomatic. is at the bedside and states that he is back to his base line. 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 IN LAST 30 DAYS: No - HPI Onset: Just prior to arrival Onset/Duration: Sudden, Gone Quality of pain: No pain Associated symptoms: Weakness. denies: Chest pain, Fever, Nausea, Vomiting, Shortness of breath Exacerbated by: Denies Relieved by: Denies Similar symptoms previously: Yes Recently seen / treated by doctor: Yes - Related Data Allergies/Adverse Reactions: No Known Allergies Allergy (Verified 12/12/13 14:12) Past Medical History - General Information source: Patient, Relative, [facility] Records - Social History Smoking Status: Unknown if Ever Smoked Frequency of alcohol use: None Drug Abuse: None Lives with: Assisted Family History: None Patient has suicidal ideation: No Patient has homicidal ideation: No - Past Medical History Cardiac Medical History: Reports: Hx Hypertension Denies: Hx Coronary Artery Disease, Hx Heart Attack Pulmonary Medical History: Denies: Hx Asthma, Hx Bronchitis, Hx COPD, Hx Pneumonia Neurological Medical History: Denies: Hx Cerebrovascular Accident, Hx Seizures Renal/ Medical History: Denies: Hx Peritoneal Dialysis GI Medical History: Reports: Hx Hepatitis - hep c Musculoskeletal Medical History: Denies Hx Arthritis Infectious Medical History: Reports: Hx Hepatitis - hep c Past Surgical History: Reports: Hx Carotid Endarterectomy, Other - PEG tube with reversal - Immunizations Hx Diphtheria, Pertussis, Tetanus Vaccination: Yes Hx Pneumococcal Vaccination: 12/12/13 Review of Systems - Review of Systems Notes: REVIEW OF SYSTEMS: CONSTITUTIONAL : Denies fever, chills, or sweats. Denies recent illness. Denies weight loss, recent hospitalizations. EENT: Denies visual changes, eye pain. Denies sore throat, oral lesions, difficulty swallowing. CARDIOVASCULAR: Denies chest pain. Denies palpitations. Denies lower extremity edema. RESPIRATORY: Denies cough. Denies shortness of breath, wheezing. GASTROINTESTINAL: Denies abdominal pain or distention. Denies nausea, vomiting, or diarrhea. Denies blood in vomitus, stools, or per rectum. Denies black, tarry stools. Denies constipation. GENITOURINARY: Denies difficulty urinating, painful urination, frequency, blood in urine, testicular pain or penile discharge. MUSCULOSKELETAL: Denies back or neck pain or stiffness. Denies joint pain or swelling. SKIN: Denies rash, lesions or sores. HEMATOLOGIC : Denies easy bruising or bleeding. LYMPHATIC: Denies swollen glands. NEUROLOGICAL: Denies confusion or altered mental status. Denies loss of consciousness. Denies dizziness or lightheadedness. Denies headache. Denies or paralysis. Denies problems difficulty with ambulation, slurred speech. Denies sensory loss, numbness, or tingling. Denies seizures. PSYCHIATRIC: Denies anxiety or stress. Denies depression, suicidal ideation, or Physical Exam - Vital signs Vitals: Pulse Resp BP Pulse Ox 62 16 106/72 94 09/22/18 14:45 09/22/18 14:45 09/22/18 14:45 09/22/18 14:45 - Notes Notes: PHYSICAL EXAMINATION: GENERAL: Well-appearing, well-nourished and in no acute distress. HEAD: Atraumatic, normocephalic. EYES: Pupils equal round and reactive to light, extraocular movements intact, sclera anicteric, conjunctiva are normal. ENT: Nares patent, oropharynx clear without exudates. Moist mucous membranes. NECK: Normal range of motion, supple without lymphadenopathy LUNGS: Breath sounds clear to auscultation bilaterally and equal. No wheezes rales or rhonchi. HEART: Regular rate and rhythm without murmurs ABDOMEN: Soft, nontender, nondistended abdomen. No guarding, no rebound. No masses appreciated. Musculoskeletal: Normal range of motion, no pitting or edema. No cyanosis. NEUROLOGICAL: Cranial nerves grossly intact. Normal speech, normal gait. Normal sensory, motor exams PSYCH: Normal mood, normal affect. SKIN: Warm, Dry, normal turgor, no rashes or lesions noted. Course - Re-evaluation Re-evalutation: Laboratory 09/22/18 09/22/18 09/22/18 14:38 14:38 14:38 WBC 5.7 RBC 4.70 Hgb 13.7 Hct 40.5 MCV 86 MCH 29.0 MCHC 33.7 RDW 14.5 H Plt Count 343 Seg Neutrophils % 64.4 Lymphocytes % 13.8 Monocytes % 13.4 H Eosinophils % 6.5 H Basophils % 1.9 Absolute Neutrophils 3.7 Absolute Lymphocytes 0.8 Absolute Monocytes 0.8 Absolute Eosinophils 0.4 Absolute Basophils 0.1 PT 13.2 INR 0.95 APTT 29.2 Sodium 135.3 L Potassium 4.5 Chloride 98 Carbon Dioxide 28 Anion Gap 9 BUN 15 Creatinine 1.09 Est GFR ( Amer) > 60 Est GFR (Non-Af Amer) > 60 Glucose 132 H Calcium 9.3 Total Bilirubin 0.5 Direct Bilirubin 0.3 Neonat Total Bilirubin Not Reportable Neonat Direct Bilirubin Not Reportable Neonat Indirect Bili Not Reportable AST 27 ALT 23 Alkaline Phosphatase 112 Creatine Kinase 26 L CK-MB (CK-2) Troponin I Total Protein 6.8 Albumin 3.5 09/22/18 14:38 WBC RBC Hgb Hct MCV MCH MCHC RDW Plt Count Seg Neutrophils % Lymphocytes % Monocytes % Eosinophils % Basophils % Absolute Neutrophils Absolute Lymphocytes Absolute Monocytes Absolute Eosinophils Absolute Basophils PT INR APTT Sodium Potassium Chloride Carbon Dioxide Anion Gap BUN Creatinine Est GFR ( Amer) Est GFR (Non-Af Amer) Glucose Calcium Total Bilirubin Direct Bilirubin Neonat Total Bilirubin Neonat Direct Bilirubin Neonat Indirect Bili AST ALT Alkaline Phosphatase Creatine Kinase CK-MB (CK-2) 0.64 Troponin I < 0.012 Total Protein Albumin Chest X-Ray 09/22/18 14:48 IMPRESSION: NO ACUTE RADIOGRAPHIC FINDING IN THE CHEST. Head CT 09/22/18 14:48 IMPRESSION: No evidence of acute intracranial abnormality. EVIDENCE OF ACUTE STROKE: NO. Temp Pulse Resp BP Pulse Ox 98 F 62 22 H 164/89 H 94 09/22/18 15:10 09/22/18 15:10 09/22/18 18:31 09/22/18 18:31 09/22/18 18:31 73-year-old male with known significant vascular disease, recent CVA presents after an episode of left-sided weakness just prior to arrival. Upon EMS arrival patient's symptoms had resolved. Upon arrival to the emergency department patient is alert, awake and with an NIH of 0. Vital signs reviewed and within normal limits. CBC, CMP, cardiac enzymes unremarkable. CT of the head was obtained and showed no evidence of acute stroke. 09/22/18 15:49 [facility] contacted. 09/22/18 16:[address] Dias regarding the patient's transient weakness. He is familiar with the patient and states that this is something that he will experience but if it continues may require a bypass. The plan is to let the patient's blood pressure run higher. Patient should not be taking his blood pressure medications with a systolic blood pressure less than 140. 09/22/18 16:14 Dr. Dias does not think that patient needs additional imaging at this time. Patient remains alert, awake without neuro deficits, chest pain. He was evaluated in the emergency department for several hours without recurrence of symptoms. 09/22/18 17:12 Discussed with the patient and his that this may re-occur because of poor perfusion. They were advised that the patient should not drive, go back to work until reevaluated by neurology. Patient was evaluated and treated as appropriate for the patient's presenting symptoms and complaint, with consideration of any critical or life threatening conditions that may be associated with their obtained history and exam as noted above. All results were discussed with patient and patient's . Patient provided the opportunity to ask questions, and express concerns. Patient was educated on treatments based on their presumed diagnosis as noted above. At this time we will discharge the patient with return precautions and follow-up recommendations. Verbal discharge instructions given a the bedside. Medication warnings reviewed. Patient is in ag reement with this plan and has verbalized understanding of return precautions. After careful consideration I feel that that patient can be safely discharged from the emergency department, they were advised to followup with a primary care physician in 2-3 days. Dictation on this chart was performed using voice recognition software and may result in unintended grammatical, spelling, syntax or errors. 09/22/18 23:42 - Vital Signs Vital signs: Temp Pulse Resp BP Pulse Ox 98 F 62 22 H 164/89 H 94 09/22/18 15:10 09/22/18 15:10 09/22/18 18:31 09/22/18 18:31 09/22/18 18:31 - Laboratory Result Diagrams: 09/22/18 14:38 09/22/18 14:38 Laboratory results interpreted by me: 09/22/18 09/22/18 14:38 14:38 RDW 14.5 H Monocytes % 13.4 H Eosinophils % 6.5 H Sodium 135.3 L Glucose 132 H Creatine Kinase 26 L - Diagnostic Test Radiology reviewed: Image reviewed, Reports reviewed Critical Care Note - Critical Care Note Total time excluding time spent on procedures (mins): 35 - Minutes of critical care time spent in direct contact evaluating and reevaluating the patient, treating symptoms, reviewing labs and studies and speaking with family and consultants excluding any procedures Discharge - Discharge Clinical Impression: TIA (transient ischemic attack), Peripheral vascular disease, Transient hypotension Condition: Fair Disposition: HOME, SELF-CARE Instructions: Transient Ischemic Attack ([facility]) Additional Instructions: After speaking to your neurologist from [facility] he states that you may experience these episodes of weakness due to poor perfusion of blood to your brain due to your vascular disease. You will need to follow-up in the clinic next week with Dr. Dias. Do not take your blood pressure med ications if your systolic blood pressure is less than 140. You need to continue to take your aspirin, Plavix and Lipitor daily. It is also important to stay well-hydrated. Referrals: SUSU FRYE FNP [Primary Care Provider] - Follow up as needed ED NIH Stroke Scale - NIH Stroke Scale *: 1. NIH scale should be completed with appropriate accompanying assessment tools. *: 2. The NIH should reflect what the patient is capable of doing and should not be coached by the clinician. 1a. Level of Consciousness: 0=Alert;keenly responsive -: 1=Drowsy -: 2=Obtunded -: 3=Coma/unresponsive or reflex to noxious stimuli. 1a. Responses: 0 1b. Orientation Questions: a. What month is it? -: b. How old are you? -: 0=Answers both questions correctly. -: 1=Answers one question correctly or patient is intubated or has orotracheal trauma. -: 2=Answers neither question correctly. 1b. Responses: 0 1c. Response to commands: a. Open and close eyes? -: b. Special Delivery Messenger and release hand? -: Credit is given despite weakness. Demonstration of task is permitted. Substitute command if hands cannot be used. -: 0=Performs both tasks correctly -: 1=Performs one task correctly -: 2=Performs neither task correctly 1c. Responses: 0 2. Gaze: Establish eye contact and instruct patient to "Follow my finger" -: 0=Normal -: 1=Partial gaze palsy. Gaze is abnormal in one or both eyes, but where forced deviation or total gaze paresis is not present. -: 2=Forced deviation or total gaze paresis. 2. Responses: 0 3. Visual Calix: Sees fingers in all four quadrants. -: 0=No visual loss. -: 1=Partial hemianopsia. -: 2=Complete hemianopsia. -: 3=Bilateral hemianopsia (including Cortical blindness) 3. Responses: 0 4. Facial Movement: Instruct patient to: -: a. Show me your teeth -: b. Raise your eyebrows -: c. Close your eyes -: d. Smile -: 0=Normal symmetrical movement -: 1=Minor paralysis (flattened nasolabial fold, asymmetry on smiling). -: 2=Partial paralysis (total or near total paralysis of lower face). -: 3=Complete paralysis of upper and lower face 4. Responses: 0 5. Motor functions (left arm): Alternate sides and extend each arm with palms down (90 degrees if sitting or 45 degrees for supine). -: 0=No drift;limb holds for full 10 seconds. -: 1=Drift; limb holds but drifts down before full 10 seconds, but does not hit bed. -: 2=Some effort against gravity; limb cannot get to or maintain position. -: 3=No effort against gravity; limb falls. -: 4=No movement. -: UN=Amputation, joint fusion, explain in comments. 5. Responses (left arm): 0 5. Motor Functions (right arm): Alternate sides and extend each arm with palms down (90 degrees if sitting or 45 degrees for supine). -: 0=No drift;limb holds for full 10 seconds. -: 1=Drift; limb holds but drifts down before full 10 seconds, but does not hit bed. -: 2=Some effort against gravity; limb cannot get to or maintain position. -: 3=No effort against gravity; limb falls. -: 4=No movement. -: UN=Amputation, joint fusion, explain in comments. 5. Responses (right arm): 0 6. Motor Functions (left leg): With patient lying supine, alternate sides and extend each leg (30 degrees always while supine). -: 0=No drift, leg holds position for full 5 seconds -: 1=Drift; leg falls before full 5 seconds but does not hit bed. -: 2=Some effort against gravity, leg falls to bed but some effort against gravity. -: 3=No effort against gravity, leg falls to bed immediately. -: 4=No movement. -: UN=Amputation, joint fusion; explain in comments. 6. Responses (left leg): 0 6. Motor Functions (right leg): With patient lying supine, alternate sides and extend each leg (30 degrees always while supine). -: 0=No drift, leg holds position for full 5 seconds -: 1=Drift; leg falls before full 5 seconds but does not hit bed. -: 2=Some effort against gravity, leg falls to bed but some effort against gravity. -: 3=No effort against gravity, leg falls to bed immediately. -: 4=No movement. -: UN=Amputation, joint fusion; explain in comments. 6. Responses (right leg): 0 7. Limb Ataxia: With eyes open instruct patient to: -: a. "Touch your finger to your nose". -: b. "Touch your heel to your alfaro" -: 0=Absent -: 1=Present in one limb. -: 2=Present in two limbs. -: UN=Amputation or joint fusion; explain in comments. 7. Responses: 0 8. Sensory: Test sensation using pinprick or noxious stimuli. Test as many body parts as possible. -: 0=Normal;no sensory loss -: 1=Mile to moderate sensory loss (patient feels pin prick but is less sharp on affected side). -: 2=Severe or total sensory loss. 8. Responses: 0 9. Best Language: Instruct patient to: -: a. "Describe what you see in this picture." -: b. "Name the items in this picture." -: c. "Read these sentences." -: 0=No aphasia, normal -: 1=Mild to moderate aphasia. -: 2=Severe aphasia -: 3=Mute, global aphasia, no usable speech or auditory comprehension. 9. Responses: 0 10. Articulation, Dysarthia: Instruct patient to: -: "Read these words" or "Repeat these words" -: 0=Normal -: 1=Mild to moderate; patient may slur some words but can be understood without difficulty. -: 2=Severe; patients speech so slurred as to be unintelligible in the absence of dysphasia. -: UN=Intubated or other physical barrier, explain in comments. 10. Responses: 0 11. Extinction or inattention: 0=No abnormality -: 1= Visual, tactile, auditory, spatial, or personal inattention or extinction to bilateral simulation in one or the sensory modalities. -: 2=Profound jn-inattention or jn-inattention to more than one modality; does not recognize own hand. Total Score: 0
[2018-09-22 15:54] LABS: CREATINE KINASE MB 0.64 ng/mL (<4.55); TROPONIN I < 0.012 ng/mL
[2018-09-22] MEDS ORDERED: NORMAL SALINE 1000 ML 1,000 ML IV ONE (16:13)
[2018-09-22 18:53] VITALS: BP 164/89
--- NOTE | 2018-09-22 22:55 | EKG REPORT ---
SEVERITY:- ABNORMAL ECG - SINUS RHYTHM INCOMPLETE RBBB AND LAFB CONSIDER ANTEROSEPTAL INFARCT : Confirmed by: Susie Rosales MD 22-Sep-2018 22:54:36
== END 2018-09-22 19:15 | disposition home or self-care (01) ==
LOC: ER 14:44
DX: G45.9 Transient cerebral ischemic attack, unspecified (principal); R53.1 Weakness; R41.0 Disorientation, unspecified; I95.9 Hypotension, unspecified; I10 Essential (primary) hypertension; I73.9 Peripheral vascular disease, unspecified; Z95.5 Presence of coronary angioplasty implant and graft; Z85.819 Personal history of malignant neoplasm of unspecified site of lip, oral cavity, and pharynx
CPT/HCPCS: 93005; 99291; 36415; 82553; 82550; 85610; 85025; 85730; 80053; 84484; 71045; 70450; 93010; J7030